=== PATIENT | female | born 1980 | race Caucasian/White ===

== ENCOUNTER 2017-01-25 12:34 | Emergency (ER) | payer SELFPAY ==
[~2017-01-25 12:34] MED LIST: BACTRIM DS TABL1 TAB PO; FLUOXETINE HCL20 MG PO; IMITREX25 MG; LAMOTRIGINE25 M1 PO; LEXAPRO10 MG; NORCO 5/325 TAB1 TAB PO; PERCOCET 5/3251 TAB PO; SKELAXIN800 M1 PO; STOOL SOFTENER
== END 2017-01-25 14:39 ==
LOC: EDMED 12:34
DX: S93.601A Unspecified sprain of right foot, initial encounter (principal); W01.0XXA Fall on same level from slipping, tripping and stumbling without subsequent striking against object, initial encounter; Y92.009 Unspecified place in unspecified non-institutional (private) residence as the place of occurrence of the external cause; Z90.89 Acquired absence of other organs